=== PATIENT | female | born 1935 | race Caucasian/White ===

== ENCOUNTER 2022-09-28 13:57 | Outpatient (CLI) | payer MEDICARE, BC | END 2022-09-28 13:58 | disposition home or self-care (01) | LOC: BICMAMMO 13:57 | PROVIDERS: ATTEND Internal Medicine Rheumatology | DX: Z13.820 Encounter for screening for osteoporosis (principal); M85.851 Other specified disorders of bone density and structure, right thigh; M85.852 Other specified disorders of bone density and structure, left thigh; Z78.0 Asymptomatic menopausal state | CPT/HCPCS: 77080 ==